=== PATIENT | male | born 1985 | race Caucasian/White ===

== ENCOUNTER 2025-01-07 06:39 | Emergency (ER) | payer MEDICAID ==
[~2025-01-07] VITALS: Ht 175.3 cm; Wt 83.9 kg
[2025-01-07 06:42] VITALS: BP 135/97; PULSE 89; RESP 16; O2SAT 100
[2025-01-07] MEDS ORDERED: HYDR-3973 PO (07:31)
[2025-01-07] MEDS ORDERED: PENI500T2 PO (07:31)
--- NOTE | 2025-01-07 07:32 | Physician Documentation ---
HPI ~ General Chief Complaint: Tooth Problem Stated Complaint: TOOTH PAIN Time Seen by MD: 07:27 Source: patient Mode of Arrival: POV Exam Limitations: no limitations History of Present Illness HPI Comment Chief Complaint: Dental pain Caveat: None Independent Historians: None History of Present Illness: Patient is a 39-year-old man who comes in complaining of severe dental pain that began 4 hours ago. Patient is requesting antibiotics and pain medications. Patient's pain is severe, constant and worse with eating or drinking. No fever. Review of systems: All systems were reviewed and are negative except for what is indicated in the history of present illness. Past Medical History: None Past Surgical History: Noncontributory Social History: Denies drug use Medications: Reviewed as documented Nursing Notes Allergies: Reviewed as documented in Nursing Notes Medication Reconciliation Allergies: Coded Allergies: No Known Allergies (Unverified , 01/07/25) Scheduled Penicillin V Potassium* (Penicillin VK*), 500 MG PO Q6H Scheduled PRN Hydrocodone Bit/Acetaminophen (Hydrocodone-Apap 10-325 Tablet), 1 TAB PO TID PRN PRN for pain Review of Systems All Other Systems at this time: Reviewed and Negative ROS Patient denies any other acute symptoms other than above. All other systems are negative Physical Exam Vital Signs: RN Vital Signs have been reviewed: Yes, Temperature: 97.9, Source: Oral, Heart Rate: 89, Respiratory Rate: 16, BP: 135/97, Pulse Oximetry: 100, Weight: 83.900 Oxygen Flow Rate: 0 Physical Exam General Appearance: Mild distress HEENT: Normal OP, moist oral mucosa, PERRL, EOMI, very poor dentition, right lower molar is fractured and missing posterior half thought to be number tooth Number 30 or 31. No facial swelling, no submental swelling Neck: supple, normal ROM, trachea midline Pulmonary: No respiratory distress, CTA, BS equal Cardiac: RRR, no murmur, rub or gallop, Skin: intact, dry, warm, no rashes Neuro: AAOx3, speech is clear Progress Results/Orders Results/Orders Medical Decision Making Findings Differential diagnosis includes but is not limited to: Periapical abscess, peridental abscess, dental caries, tooth fracture Emergency department course/medical decision-making: Patient likely has an infected roots and tooth number 30 or 31. Patient will be placed on pen VK and pain medication. Patient is instructed to follow up with the primary care doctor as soon as possible. Departure Time of Disposition: 07:29 Disposition: 01 HOME / SELF CARE / HOMELESS Impression: Primary Impression: Severe dental decay Discharge Instructions: Dental Pain, Dental Caries, Adult Additional Instructions: YOU NEED TO FOLLOW UP WITH A DENTIST FOR REMOVAL OF THE INFECTED ROOTS. Prescriptions Penicillin V Potassium* (Penicillin VK*) 500 Mg Tablet 500 MG PO Q6H, #40 TAB Prov: RUDY TREVIÑO MD 01/07/25 Hydrocodone Bit/Acetaminophen (Hydrocodone-Apap 10-325 Tablet) 10mg/325mg Tablet 1 TAB PO TID PRN PRN for pain for 5 Days, #15 TAB Prov: RUDY TREVIÑO MD 01/07/25 Education Educated: Patient Educated regarding: diagnosis, treatment, need for follow up Signature Scribe Signature: No scribe Attestation: No scribe RUDY TREVIÑO MD Jan 07, 2025 07:32
[2025-01-07 07:39] VITALS: TEMP 97.9
== END 2025-01-07 07:41 | disposition home or self-care (01) ==
LOC: ER 06:41
DX: K02.9 Dental caries, unspecified (principal)
CPT/HCPCS: 99283